=== PATIENT | male | born 1960 | race Caucasian/White ===

== ENCOUNTER 2017-04-12 04:02 | Emergency (ER) | END 2017-04-12 09:06 | disposition home or self-care (01) ==

== ENCOUNTER 2018-11-20 15:35 | Inpatient (IN) | payer OTHER ==
[~2018-11-20] VITALS: Ht 180.3 cm; Wt 82.9 kg
[~2018-11-20 15:35] MED LIST: ALBU18HF INHALATION; BENZ-6 PO; CLIN300C2; CLON0.1T14 PO; DOXY100T2 PO; ELIM TOP; GABA100C; HYDR200T5 PO; IBUP-1561 PO; METH10TA2 PO; OXYC80TA; POLY17PO6 PO; PRIM250T30
[2018-11-20] MEDS ORDERED: CEFEPIME 2GM/50 ML (PMX) 50 ML IVPB STA (20:22)
[2018-11-20] MEDS ORDERED: VANCOMYCIN 1 GM (PMX) 250 ML IVPB ONE (20:30)
[2018-11-20] MEDS ORDERED: BISACODYL (EC) 5 MG TAB PO PRN (21:00)
[2018-11-20] MEDS ORDERED: VANCOMYCIN IV PER PHARMACY XX SCH (21:00)
[2018-11-20] MEDS ORDERED: NACL 0.9% 3 ML SYG IV SCH (21:00)
[2018-11-20] MEDS ORDERED: DOCUSATE SODIUM 100 MG CAP PO PRN (21:00)
[2018-11-20] MEDS ORDERED: ONDANSETRON 4 MG INJ IV PRN (21:00)
[2018-11-20 23:20] VITALS: BP 116/66; PULSE 92; RESP 20
[2018-11-20 23:27] VITALS: Ht 180.3 cm; Wt 82.9 kg
[2018-11-21 02:21] VITALS: BP 126/77; PULSE 85; RESP 17
[2018-11-21] MEDS: ACETAMINOPHEN 325 MG TAB PO PRN (03:20)
[2018-11-21] MEDS: morphine 4 MG/ML VIAL IV PRN ×3 (05:00→23:22)
[2018-11-21 08:17] VITALS: BP 101/53; PULSE 74; RESP 17
[2018-11-21] MEDS: VANCOMYCIN 1 GM 250 ML IVPB SCH ×2 (10:13→21:31)
[2018-11-21 14:57] VITALS: BP 99/61; PULSE 66; RESP 17
[2018-11-21] MEDS: CEFEPIME 1GM/50 ML (PMX) 50 ML IVPB SCH ×2 (15:01→20:32)
[2018-11-21 19:00] VITALS: BP 109/58; PULSE 76; RESP 18
[2018-11-21] MEDS: HYDROCODONE/APAP (5/325) TAB PO PRN (20:40)
[2018-11-22 01:57] VITALS: BP 132/68; PULSE 69; RESP 18
[2018-11-22] MEDS: morphine 4 MG/ML VIAL IV PRN ×5 (06:06→23:39)
[2018-11-22] MEDS: HYDROCODONE/APAP (5/325) TAB PO PRN ×2 (08:18→16:50)
[2018-11-22] MEDS: CEFEPIME 1GM/50 ML (PMX) 50 ML IVPB SCH ×2 (08:19→20:29)
[2018-11-22] MEDS: ENOXAPARIN 40 MG/0.4 ML SYG SC SCH (08:24)
[2018-11-22 08:28] VITALS: BP 146/79; PULSE 73; RESP 20
[2018-11-22] MEDS: HYDROXYCHLOROQUINE 200 MG TAB PO SCH (09:00)
[2018-11-22] MEDS: VANCOMYCIN 1 GM 250 ML IVPB SCH ×2 (09:57→21:18)
[2018-11-22 14:46] VITALS: BP 138/79; PULSE 68; RESP 17
[2018-11-22 19:32] VITALS: BP 131/80; PULSE 72; RESP 16
[2018-11-22] MEDS: HYDROCORTISONE 1% 28.35 GM OINT TOP SCH (21:23)
[2018-11-22] MEDS: ACETAMINOPHEN 325 MG TAB PO PRN (22:11)
[2018-11-23] VITALS (16 sets, daily range): BP systolic 91–134; BP diastolic 53–81; PULSE 60–81; RESP 11–25
[2018-11-23] MEDS ORDERED: oxyCODONE (CR) 15 MG TAB [oxyCONTIN] PO ONE
[2018-11-23] MEDS: morphine 4 MG/ML VIAL IV PRN (04:50)
[2018-11-23] MEDS: VANCOMYCIN 1.25 GM/NS 250 ML 250 ML IVPB SCH ×2 (06:05→18:54)
[2018-11-23] MEDS ORDERED: METHADONE (1 MG/ML 5 ML PO UD SYG) PO PRN (08:00)
[2018-11-23] MEDS: HYDROXYCHLOROQUINE 200 MG TAB PO SCH (09:00)
[2018-11-23] MEDS: ENOXAPARIN 40 MG/0.4 ML SYG SC SCH (09:00)
[2018-11-23] MEDS: METHADONE 10 MG TAB PO SCH (09:41)
[2018-11-23] MEDS: CEFEPIME 1GM/50 ML (PMX) 50 ML IVPB SCH ×2 (09:43→21:33)
[2018-11-23] MEDS: HYDROCORTISONE 1% 28.35 GM OINT TOP SCH (09:44)
[2018-11-23] MEDS ORDERED: DESFLURANE 15 MIN ONE (16:30)
[2018-11-23] MEDS ORDERED: FENTAnyl 50 MCG/ML VIAL IV PRN ×3 (16:30)
[2018-11-23] MEDS ORDERED: ONDANSETRON 4 MG INJ IV PRN (16:30)
[2018-11-23] MEDS ORDERED: HYDROmorphONE 1 MG/5 ML IV SYRINGE IV PRN ×3 (16:30)
[2018-11-23] MEDS ORDERED: PROPOFOL 20 ML ONE (16:31)
[2018-11-23] MEDS ORDERED: ROPIVACAINE 0.2% 20 ML VIAL ONE ×2 (16:31→16:52)
[2018-11-23] MEDS ORDERED: MIDAZOLAM 1 MG/ML 2 ML INJ ONE (16:31)
[2018-11-23] MEDS ORDERED: FENTAnyl 50 MCG/ML VIAL ONE (16:37)
[2018-11-23] MEDS ORDERED: METOCLOPRAMIDE 10 MG INJ ONE (16:48)
[2018-11-23] MEDS ORDERED: EPHEDrine 25 MG/5 ML SYG ONE (17:58)
[2018-11-23] MEDS: ACETAMINOPHEN 325 MG TAB PO PRN (21:37)
[2018-11-23] MEDS: HYDROmorphONE 1 MG/ML SYG IV PRN (22:26)
[2018-11-24] MEDS: HYDROmorphONE 1 MG/ML SYG IV PRN ×6 (01:44→20:07)
[2018-11-24 02:22] VITALS: BP 139/79; PULSE 62; RESP 20
[2018-11-24] MEDS: VANCOMYCIN 1.25 GM/NS 250 ML 250 ML IVPB SCH ×2 (05:49→17:42)
[2018-11-24 07:48] VITALS: BP 154/85; PULSE 66; RESP 17
[2018-11-24] MEDS: HYDROXYCHLOROQUINE 200 MG TAB PO SCH (08:16)
[2018-11-24] MEDS: HYDROCORTISONE 1% 28.35 GM OINT TOP SCH (08:17)
[2018-11-24] MEDS: METHADONE 10 MG TAB PO SCH ×3 (08:17→20:54)
[2018-11-24] MEDS: ENOXAPARIN 40 MG/0.4 ML SYG SC SCH (08:25)
[2018-11-24] MEDS: CEFEPIME 1GM/50 ML (PMX) 50 ML IVPB SCH ×2 (10:42→20:54)
[2018-11-24] MEDS: POLYETHYLENE GLYCOL 17 GM PACKET PO SCH ×2 (11:30→15:30)
[2018-11-24] MEDS: ACETAMINOPHEN 325 MG TAB PO PRN (14:04)
[2018-11-24 14:25] VITALS: BP 139/83; PULSE 61; RESP 16
[2018-11-24] MEDS ORDERED: DOCUSATE SODIUM 100 MG CAP PO PRN (15:30)
[2018-11-24 19:33] VITALS: BP 133/83; PULSE 62; RESP 17
[2018-11-25 02:08] VITALS: BP 129/75; PULSE 67; RESP 16
[2018-11-25] MEDS: HYDROmorphONE 1 MG/ML SYG IV PRN ×5 (03:11→20:06)
[2018-11-25] MEDS: VANCOMYCIN 1.25 GM/NS 250 ML 250 ML IVPB SCH ×2 (05:46→17:46)
[2018-11-25 08:09] VITALS: BP 139/78; PULSE 69; RESP 16
[2018-11-25] MEDS: METHADONE 10 MG TAB PO SCH ×3 (08:44→21:05)
[2018-11-25] MEDS: HYDROXYCHLOROQUINE 200 MG TAB PO SCH ×2 (08:44→08:46)
[2018-11-25] MEDS: POLYETHYLENE GLYCOL 17 GM PACKET PO SCH ×2 (08:48→10:30)
[2018-11-25] MEDS: CEFEPIME 1GM/50 ML (PMX) 50 ML IVPB SCH ×2 (08:50→21:05)
[2018-11-25] MEDS: ENOXAPARIN 40 MG/0.4 ML SYG SC SCH (08:52)
[2018-11-25] MEDS: HYDROCORTISONE 1% 28.35 GM OINT TOP SCH (08:53)
[2018-11-25] MEDS: ACETAMINOPHEN 325 MG TAB PO PRN (10:30)
[2018-11-25 14:47] VITALS: BP 108/61; PULSE 70; RESP 17
[2018-11-25 19:25] VITALS: BP 127/78; PULSE 66; RESP 17
[2018-11-26] MEDS: HYDROmorphONE 1 MG/ML SYG IV PRN ×6 (01:23→21:11)
[2018-11-26 02:22] VITALS: BP 124/69; PULSE 64; RESP 18
[2018-11-26] MEDS: VANCOMYCIN 1.25 GM/NS 250 ML 250 ML IVPB SCH (06:14)
[2018-11-26] MEDS: METHADONE 10 MG TAB PO SCH ×3 (08:29→22:47)
[2018-11-26] MEDS: POLYETHYLENE GLYCOL 17 GM PACKET PO SCH ×2 (08:30)
[2018-11-26] MEDS: CEFEPIME 1GM/50 ML (PMX) 50 ML IVPB SCH (08:30)
[2018-11-26 08:31] VITALS: BP 126/76; PULSE 62; RESP 18
[2018-11-26] MEDS: HYDROXYCHLOROQUINE 200 MG TAB PO SCH (08:31)
[2018-11-26] MEDS: ENOXAPARIN 40 MG/0.4 ML SYG SC SCH (08:33)
[2018-11-26] MEDS: HYDROCORTISONE 1% 28.35 GM OINT TOP SCH (08:34)
[2018-11-26] MEDS: ACETAMINOPHEN 325 MG TAB PO PRN (10:37)
[2018-11-26 13:17] VITALS: BP 114/60; PULSE 64; RESP 18
[2018-11-26] MEDS: TRIMETHOPRIM/SULFAMETHOX (DS) TAB PO SCH ×2 (16:11→22:47)
[2018-11-26 19:49] VITALS: BP 114/73; PULSE 59; RESP 18
[2018-11-27 01:56] VITALS: BP 132/64; PULSE 67; RESP 18
[2018-11-27] MEDS: HYDROmorphONE 1 MG/ML SYG IV PRN ×6 (04:28→21:23)
[2018-11-27] MEDS: ACETAMINOPHEN 325 MG TAB PO PRN ×2 (08:01→22:27)
[2018-11-27 08:17] VITALS: BP 105/62; PULSE 56; RESP 16
[2018-11-27] MEDS: METHADONE 10 MG TAB PO SCH ×3 (08:58→20:45)
[2018-11-27] MEDS: TRIMETHOPRIM/SULFAMETHOX (DS) TAB PO SCH ×2 (08:58→20:43)
[2018-11-27] MEDS: HYDROXYCHLOROQUINE 200 MG TAB PO SCH (09:00)
[2018-11-27] MEDS: ENOXAPARIN 40 MG/0.4 ML SYG SC SCH (09:00)
[2018-11-27] MEDS: POLYETHYLENE GLYCOL 17 GM PACKET PO SCH ×2 (09:00)
[2018-11-27] MEDS: HYDROCORTISONE 1% 28.35 GM OINT TOP SCH (09:00)
[2018-11-27 13:49] VITALS: BP 130/77; PULSE 70; RESP 18
[2018-11-27 21:01] VITALS: BP 133/77; PULSE 70; RESP 18
[2018-11-28 02:00] VITALS: BP 136/76; PULSE 68; RESP 18
[2018-11-28] MEDS: HYDROmorphONE 1 MG/ML SYG IV PRN ×6 (02:51→20:36)
[2018-11-28 07:38] VITALS: BP 177/88; PULSE 84; RESP 18
[2018-11-28] MEDS: POLYETHYLENE GLYCOL 17 GM PACKET PO SCH ×2 (09:00→09:01)
[2018-11-28] MEDS: HYDROCORTISONE 1% 28.35 GM OINT TOP SCH (09:00)
[2018-11-28] MEDS: HYDROXYCHLOROQUINE 200 MG TAB PO SCH (09:01)
[2018-11-28] MEDS: METHADONE 10 MG TAB PO SCH ×3 (09:01→20:35)
[2018-11-28] MEDS: TRIMETHOPRIM/SULFAMETHOX (DS) TAB PO SCH ×2 (09:01→20:35)
[2018-11-28] MEDS: ENOXAPARIN 40 MG/0.4 ML SYG SC SCH (09:05)
[2018-11-28 09:44] VITALS: BP 149/77; PULSE 88
[2018-11-28] MEDS: ACETAMINOPHEN 325 MG TAB PO PRN (09:44)
[2018-11-28 14:21] VITALS: BP 115/66; PULSE 94; RESP 18
[2018-11-28 20:17] VITALS: BP 128/74; PULSE 93; RESP 16
[2018-11-29] MEDS: HYDROmorphONE 1 MG/ML SYG IV PRN ×5 (00:24→19:44)
[2018-11-29 02:27] VITALS: BP 129/65; PULSE 80; RESP 16
[2018-11-29] MEDS: ACETAMINOPHEN 325 MG TAB PO PRN ×2 (02:42→20:40)
[2018-11-29] MEDS: METHADONE 10 MG TAB PO SCH ×3 (08:52→20:37)
[2018-11-29] MEDS: HYDROXYCHLOROQUINE 200 MG TAB PO SCH ×2 (08:52→08:59)
[2018-11-29] MEDS: TRIMETHOPRIM/SULFAMETHOX (DS) TAB PO SCH ×2 (08:52→20:37)
[2018-11-29] MEDS: POLYETHYLENE GLYCOL 17 GM PACKET PO SCH (08:53)
[2018-11-29] MEDS: HYDROCORTISONE 1% 28.35 GM OINT TOP SCH (08:54)
[2018-11-29] MEDS: ENOXAPARIN 40 MG/0.4 ML SYG SC SCH (08:55)
[2018-11-29 09:12] VITALS: BP 138/82; PULSE 86; RESP 18
[2018-11-29 14:40] VITALS: BP 142/90; PULSE 94; RESP 18
[2018-11-29 20:54] VITALS: BP 137/81; PULSE 77; RESP 16
[2018-11-29] MEDS ORDERED: KETOROLAC 30 MG INJ IV ONE (21:00)
[2018-11-30 01:29] VITALS: BP 104/70; PULSE 81; RESP 16
[2018-11-30 07:32] VITALS: BP 104/65; PULSE 65; RESP 16
[2018-11-30] MEDS: POLYETHYLENE GLYCOL 17 GM PACKET PO SCH (09:00)
[2018-11-30] MEDS: HYDROXYCHLOROQUINE 200 MG TAB PO SCH (09:00)
[2018-11-30] MEDS: CHOLECALCIFEROL 2,000 UNIT CAP PO SCH (09:03)
[2018-11-30] MEDS: METHADONE 10 MG TAB PO SCH ×3 (09:03→20:49)
[2018-11-30] MEDS: TRIMETHOPRIM/SULFAMETHOX (DS) TAB PO SCH ×2 (09:07→20:49)
[2018-11-30] MEDS: HYDROmorphONE 1 MG/ML SYG IV PRN ×3 (09:07→20:52)
[2018-11-30] MEDS: HYDROCORTISONE 1% 28.35 GM OINT TOP SCH (09:15)
[2018-11-30] MEDS: ENOXAPARIN 40 MG/0.4 ML SYG SC SCH (09:19)
[2018-11-30] MEDS: ACETAMINOPHEN 325 MG TAB PO PRN (13:12)
[2018-11-30 14:27] VITALS: BP 121/73; PULSE 63; RESP 16
[2018-11-30] MEDS: NYSTATIN 15 GM OINT TOP SCH ×2 (14:29→20:49)
[2018-11-30 19:39] VITALS: BP 119/73; PULSE 61; RESP 16
[2018-12-01] MEDS: HYDROmorphONE 1 MG/ML SYG IV PRN ×5 (00:31→20:41)
[2018-12-01] MEDS: POLYETHYLENE GLYCOL 17 GM PACKET PO SCH ×2 (00:34→09:00)
[2018-12-01 01:43] VITALS: BP 113/59; PULSE 62; RESP 16
[2018-12-01 07:44] VITALS: BP 90/53; PULSE 50; RESP 18
[2018-12-01] MEDS: NYSTATIN 15 GM OINT TOP SCH ×2 (09:00→20:23)
[2018-12-01] MEDS: HYDROCORTISONE 1% 28.35 GM OINT TOP SCH (09:00)
[2018-12-01] MEDS: HYDROXYCHLOROQUINE 200 MG TAB PO SCH (09:00)
[2018-12-01] MEDS: TRIMETHOPRIM/SULFAMETHOX (DS) TAB PO SCH (09:19)
[2018-12-01] MEDS: CHOLECALCIFEROL 2,000 UNIT CAP PO SCH (09:20)
[2018-12-01] MEDS: METHADONE 10 MG TAB PO SCH ×3 (09:21→20:23)
[2018-12-01] MEDS: ENOXAPARIN 40 MG/0.4 ML SYG SC SCH (09:24)
[2018-12-01] MEDS: DOXYCYCLINE 100 MG TAB PO SCH ×2 (14:12→20:23)
[2018-12-01 15:41] VITALS: BP 108/84; PULSE 81; RESP 17
[2018-12-01 19:58] VITALS: BP 132/67; PULSE 72; RESP 18
[2018-12-02 01:30] VITALS: BP 136/78; PULSE 98; RESP 20
[2018-12-02] MEDS: HYDROmorphONE 1 MG/ML SYG IV PRN ×4 (03:30→21:21)
[2018-12-02 07:41] VITALS: BP 103/61; PULSE 71; RESP 20
[2018-12-02] MEDS: POLYETHYLENE GLYCOL 17 GM PACKET PO SCH (09:00)
[2018-12-02] MEDS: HYDROCORTISONE 1% 28.35 GM OINT TOP SCH (09:00)
[2018-12-02] MEDS: HYDROXYCHLOROQUINE 200 MG TAB PO SCH (09:00)
[2018-12-02] MEDS: NYSTATIN 15 GM OINT TOP SCH ×2 (09:00→19:45)
[2018-12-02] MEDS: METHADONE 10 MG TAB PO SCH ×3 (09:36→20:42)
[2018-12-02] MEDS: CHOLECALCIFEROL 2,000 UNIT CAP PO SCH (09:36)
[2018-12-02] MEDS: DOXYCYCLINE 100 MG TAB PO SCH ×2 (09:36→20:42)
[2018-12-02] MEDS: ENOXAPARIN 40 MG/0.4 ML SYG SC SCH (09:38)
[2018-12-02 16:05] VITALS: BP 113/65; PULSE 69; RESP 20
[2018-12-02 20:19] VITALS: BP 105/56; PULSE 72; RESP 16
[2018-12-03 01:58] VITALS: BP 124/81; PULSE 65; RESP 18
[2018-12-03] MEDS: HYDROmorphONE 1 MG/ML SYG IV PRN ×2 (02:01→06:41)
[2018-12-03] MEDS ORDERED: DIPHENHYDRAMINE 50 MG INJ IV PRN (07:00)
[2018-12-03 07:38] VITALS: BP 115/65; PULSE 68; RESP 20
[2018-12-03] MEDS: ACETAMINOPHEN 325 MG TAB PO PRN (07:43)
[2018-12-03] MEDS: NYSTATIN 15 GM OINT TOP SCH (09:00)
[2018-12-03] MEDS: HYDROCORTISONE 1% 28.35 GM OINT TOP SCH (09:00)
[2018-12-03] MEDS: HYDROXYCHLOROQUINE 200 MG TAB PO SCH (09:01)
[2018-12-03] MEDS: CHOLECALCIFEROL 2,000 UNIT CAP PO SCH (09:01)
[2018-12-03] MEDS: POLYETHYLENE GLYCOL 17 GM PACKET PO SCH (09:01)
[2018-12-03] MEDS: DOXYCYCLINE 100 MG TAB PO SCH (09:01)
[2018-12-03] MEDS: ENOXAPARIN 40 MG/0.4 ML SYG SC SCH (09:08)
[2018-12-03] MEDS ORDERED: DIPHENHYDRAMINE 25 MG CAP PO PRN (10:00)
[2018-12-03 14:29] VITALS: BP 121/73; PULSE 73; RESP 18
== END 2018-12-03 18:18 | disposition home or self-care (01) | DRG 574 ==
LOC: E/R 15:35 → 2NE 20:38
PROVIDERS: ADMIT Family Medicine; ATTEND Family Medicine
PROC: 0HRMXK3 Replacement of Right Foot Skin with Nonautologous Tissue Substitute, Full Thickness, External Approach (ICD-10-PCS; 2018-11-23)
PROC: 0JBQ0ZZ Excision of Right Foot Subcutaneous Tissue and Fascia, Open Approach (ICD-10-PCS; principal; 2018-11-23 16:30)
DX: L03.115 Cellulitis of right lower limb (principal); L97.819 Non-pressure chronic ulcer of other part of right lower leg with unspecified severity; N17.9 Acute kidney failure, unspecified; F11.20 Opioid dependence, uncomplicated; D63.8 Anemia in other chronic diseases classified elsewhere; G89.29 Other chronic pain; I87.2 Venous insufficiency (chronic) (peripheral); M35.3 Polymyalgia rheumatica; M32.9 Systemic lupus erythematosus, unspecified; R60.0 Localized edema; Z59.0 Homelessness; Z86.718 Personal history of other venous thrombosis and embolism
CPT/HCPCS: 71045; 73590; 73630; 80048; 80053; 80202; 80307; 82306; 82652; 83036; 83735; 84100; 85025; 85610; 85651; 85730; 86140; 87070; 87075; 93971; 96374; 97162; 97530; J0692; J1170; J1650; J1885; J2250; J2270; J2765; J2795; J3010; J3370